=== PATIENT | female | born 1950 | race Caucasian/White ===

== ENCOUNTER → 2021-09-04 | Outpatient (CLI) | payer OTHER ==
[~2021-09-04] MED LIST: DECADRON6 MG PO; IPRATROPIU0.2 MG/1 M INH; OMNICEF 300 MG300 MG PO; PREDNISONE50 MG PO; ZITHROMAX250 MG PO
== END ==
LOC: HEART 5 14:14
DX: J44.9 Chronic obstructive pulmonary disease, unspecified (principal)
CPT/HCPCS: 94060; 94729